=== PATIENT | male | born 1985 | race Two or more races ===

== ENCOUNTER 2020-12-31 11:53 | Inpatient (IN) | payer OTHER ==
[~2020-12-31] VITALS: Ht 165.1 cm; Wt 79.4 kg
== END 2021-01-09 13:18 | disposition home or self-care (01) | DRG 373 ==
LOC: ER 11:53 → SEC-K 20:22 → ER 01-01 00:20 → SURH 01-01 00:20 → SEC-K 01-01 01:16 → SURH 01-01 01:16
PROVIDERS: ADMIT Surgery; ATTEND Surgery
PROC: 02H633Z Insertion of Infusion Device into Right Atrium, Percutaneous Approach (ICD-10-PCS; principal; 2021-01-01)
PROC: 3E0336Z Introduction of Nutritional Substance into Peripheral Vein, Percutaneous Approach (ICD-10-PCS; 2021-01-01)
DX: K35.33 Acute appendicitis with perforation, localized peritonitis, and gangrene, with abscess (principal); Z20.822 Contact with and (suspected) exposure to COVID-19

== ENCOUNTER 2021-02-20 09:56 | Outpatient (CLI) | payer OTHER | END 2021-02-20 10:14 | disposition home or self-care (01) | LOC: TOM 09:56 | PROVIDERS: ATTEND Surgery | DX: K35.33 Acute appendicitis with perforation, localized peritonitis, and gangrene, with abscess (principal) ==